=== PATIENT | male | born 1985 | race Caucasian/White ===

== ENCOUNTER → 2017-12-31 14:04 | Outpatient (CLI) | payer OTHER, SELFPAY ==
--- NOTE | 2017-12-31 14:05 | RAD_ITS ---
STUDY: X-RAY - RIGHT ANKLE REASON FOR EXAM: Male, 32 years old. Fall. TECHNIQUE: 3 view(s) of the ankle. COMPARISON: None. FINDINGS: Normal visualized distal tibia and fibula. Normal medial and lateral malleoli. Normal tibiotalar articulation and ankle mortise. Normal visualized talus and calcaneus. The visualized subtalar, talonavicular, calcaneocuboid and tarsal articulations are normal. There is no demonstrated fracture. The soft tissue structures are unremarkable. RAD/Ankle min 3 Views IMPRESSION: Normal x-ray examination of the ankle. Electronically Signed: Yaniv Storey MD at 23:36 EDT , Service support ,
== END ==
PROVIDERS: Family Provider Family Medicine; PCP Family Medicine; Referring Provider Physician Assistant Surgical; Visit Provider Physician Assistant Surgical
DX: S90.01XA Contusion of right ankle, initial encounter (principal)
CPT/HCPCS: 73610

== ENCOUNTER 2019-05-27 03:10 | Emergency (ER) | payer OTHER, SELFPAY ==
[2018-04-14 10:24] VITALS: BMI 35.9
[2019-05-27 03:12] VITALS: BP 139/95; PULSE 78; RESP 24; TEMP 35.5; O2SAT 100; BMI 37.2
--- NOTE | 2019-05-27 03:21 | ED.DCSUM_ITS ---
History of Present Illness Chief Complaint: Abd Pain Informant: Patient - Abdominal Pain/Flank Pain Onset: Hours - 2 Context: Sudden Onset Timing: Continuous, Waxes and wanes Quality: Aching Location: Right Flank - and radiates into scrotum Current Severity: Severe Maximum Severity: Severe - Nausea/Vomiting/Emesis GI Symptom: Nausea, Vomiting Onset: Today - Diarrhea/Melena/Hematochezia GI Symptom: Negative for: Diarrhea, Melena, Hematochezia Associated Symptoms: - - difficulty feels like needs to go but nothing coming out. Negative for: Dysuria, Frequency, Hematuria, Urgency Narrative: Sudden onset of severe symptoms tonight while resting. Seems to radiate into his scrotum. No history of kidney stones that he knows of. No history of any abdominal surgeries. Prior similar symptoms: No Recent Illness/Hospitalization: No Past Medical History - Allergies and Home Meds Allergies/Adverse Reactions: Allergies No Known Allergies Allergy (Verified 05/27/19 03:11) Primary Care Physician: Gerald Waldron MD [STAFF PHYSICIAN] - 1 Week if not improving Past Medical History: None Surgical History: no surgical history Lives: With Family Smoking Status: Current every day smoker Review of Systems General: Denies: Chills, Fever, Sweats Eyes: Denies: Visual changes - bilaterally, Diplopia ENT: Denies: Rhinorrhea, Sore throat Cardiovascular: Denies: Chest pain, Palpitations Respiratory: Denies: Dyspnea, Cough, Dyspnea on exertion Gastrointestinal: Reports: Abdominal pain, Nausea, Vomiting. Denies: Diarrhea, Melena, Hematochezia Genitourinary: Reports: - - difficulty urinating. see HPI.. Denies: Dysuria, Hematuria, Frequency Musculoskeletal: Reports: Back pain. Denies: Swelling, Extremity Pain Skin: Denies: Rash, Wounds Neurological: Denies: Headache, Weakness, Numbness Physical Exam Vital Signs/Narrative: Vital Signs Temp Pulse Resp BP Pulse Ox 05/27/19 03:12 95.9 F L 78 24 H 139/95 H 100 Inital Vital Signs reviewed: Yes General: Well nourished, Well developed, Acute Distress - mild painful Head: Normocephalic, Atraumatic Eyes: Perrl, EOMI ENT: Moist mucous membranes, No rhinorrhea Neck: Supple, Nontender Cardiovascular: Regular rate, Regular rhythm, No murmurs Respiratory: No distress, CTA bilaterally, Chest nontender Abdomen: Soft, Nondistended, Normal bowel sounds, Tender - mild suprapubic. Negative for: Guarding, Rebound tenderness Back: Normal Inspection, CVA tenderness - Right only Extremities: Nontender, No edema Skin: Normal color, No rash Neurological: Alert, Oriented x3, Cranial nerves II-XII grossly intact, Normal Strength, Normal Sensation, Normal Gait Psychological: Normal affect, Normal Mood Diagnostic/Tx/Re-eval Impressions Abdomen/Pelvis CT 05/27/19 03:21 IMPRESSION: Mild right hydronephrosis due to a 1.6 mm stone at the right UV junction. 2 mm stone within the mid lower pole of the right kidney. Remainder of the exam otherwise unremarkable. Electronically Signed: Gisell Marie MD at 4:05 EDT , Service support , 05/27/19 03:21 Abdomen/Pelvis without Cont [CT] Stat Laboratory Results 05/27/19 04:00 Urine Color Yellow Urine Clarity Clear Urine pH 5.0 Ur Specific [place] 1.025 Urine Protein 30 H Urine Glucose (UA) Normal Urine Ketones 5 H Urine Occult Blood 10 H Urine Nitrite Negative Urine Bilirubin Negative Urine Urobilinogen 1 H Ur Leukocyte Esterase Negative - Medical Decision Making CT shows a 3 mm right UVJ stone, consistent with the patient's symptoms. No other acute abnormalities. Urinalysis shows no signs of infection. His pain was well-controlled with Toradol and Zofran for nausea. He was driving his daughter home and does not want anything that would keep him from being able to do that. He was given prescriptions for Percocet and Zofran, strainers for urine, and appropriate discharge instructions, we discussed reasons to return and do follow-up with urology but expectant management indicated for now. ED Disposition - Plan for ED Patient: Disposition: Home or Assisted Living Diagnosis: Urolithiasis, Ureteral colic Instructions: KIDNEY STONE w/ Colic Prescriptions: Oxycodone HCl/Acetaminophen [Percocet 5/325] 1 tab PO Q6H PRN PRN 3 Days #12 tab PRN Reason: Pain Prescription Printed Ondansetron [Zofran Odt] 8 mg PO Q8H PRN PRN #12 tab PRN Reason: Nausea Prescription Printed Referrals: Gerald Waldron MD [STAFF PHYSICIAN] - 1 Week if not improving
--- NOTE | 2019-05-27 03:21 | CT_ITS ---
STUDY: CT ABDOMEN AND PELVIS WITHOUT CONTRAST REASON FOR EXAM: Male, 33 years old. GROIN PAIN THAT WOKE PT @ 130 AM,NAUSEA,DIFFICULT URINATION RADIATION DOSAGE (If Supplied By Facility): CTDIvol = ( 18.56 ) mGy, DLP = ( 1108.36 ) mGycm TECHNIQUE: Transaxial images were obtained from the dome of the diaphragm to the symphysis pubis without oral contrast, and without intravenous contrast. Sagittal and coronal images were reconstructed. Individualized dose optimization techniques were used for this CT. COMPARISON: None. FINDINGS: The visualized lung bases are unremarkable. The visualized portions of the heart are within normal limits. Normal liver. Normal gallbladder and extrahepatic biliary system. Normal spleen. Normal pancreas. Normal bilateral adrenal glands. 2 mm stone within the mid lower pole of the right kidney noted posteriorly. Mild right hydronephrosis and mild right hydroureter due to a distal stone at the right UV junction measuring 1.6 mm. Normal left kidney. Normal visualized stomach. Normal small intestine. Normal colon. The appendix is visualized and appears normal. Normal abdominal aorta. Normal inferior vena cava. Normal retroperitoneum. Decompressed urinary bladder otherwise unremarkable. Normal visualized prostate gland. Normal abdominal wall. Normal osseous structures. CT/Abdomen/Pelvis without Cont IMPRESSION: Mild right hydronephrosis due to a 1.6 mm stone at the right UV junction. 2 mm stone within the mid lower pole of the right kidney. Remainder of the exam otherwise unremarkable. Electronically Signed: Gisell Marie MD at 4:05 EDT , Service support ,
[2019-05-27] MEDS: Ketorolac 30 MG/ML Syringe IV (03:25)
[2019-05-27] MEDS: Ondansetron 4 MG/2 ML Vial IV (03:26)
[2019-05-27 04:09] LABS: Bacteria 0 SEEN /hpf (None Seen); Red Blood Cells-Urine 0 SEEN /hpf (0-5); Squamous Epithelial Cells - UA 0 SEEN /hpf (0-5); White Blood Cells 0 SEEN /hpf (0-5)
[2019-05-27 04:15] LABS: Color, Urine Yellow (Yellow); Glucose, Dipstick Normal (Normal); Ketone-Dipstick 5 mg/dl (Negative); Leukocyte Esterase-Dipstick Negative /ul (Negative); Nitrite-Dipstick Negative (Negative); Occult Blood-Urine 10 /ul (Negative); Protein-Dipstick 30 mg/dl (Negative); Specific Gravity, Urine 1.025 (1.002-1.030); Urine Bilirubin Dipstick Negative (Negative); Urine Clarity Clear (Clear); Urine Urobilinogen 1 mg/dl (Normal)
[2019-05-27 04:22] VITALS: BP 139/88; PULSE 87; RESP 16; O2SAT 98
[2019-05-27 04:26] LABS: Mucous, Urine RARE /hpf (<or=2+)
== END 2019-05-27 04:23 | disposition home or self-care (01) ==
LOC: ED 03:45
PROVIDERS: Emergency Provider Emergency Medicine
DX: N20.1 Calculus of ureter (principal); N23 Unspecified renal colic; F17.200 Nicotine dependence, unspecified, uncomplicated
CPT/HCPCS: 74176; 81001; 96374; 96375; 99284; A4216; J2405

== ENCOUNTER 2019-06-05 12:05 | Emergency (ER) | payer OTHER, SELFPAY ==
[2019-06-05 12:06] VITALS: BP 137/86; PULSE 74; RESP 17; TEMP 36.9; O2SAT 98; BMI 36.6
--- NOTE | 2019-06-05 12:16 | ED.VIS.GEN ---
History of Present Illness Chief Complaint: Flank Pain Detail of Chief Complaint: Right flank pain Informant: Patient Onset: Today Current Severity: Moderate Maximum Severity: Severe Narrative: Patient presents secondary to right flank pain. He was seen here in the ER on May 26 with right flank pain. CT showed a 1.6 mm stone at the right UVJ and a 2 mm stone in the lower pole the right kidney. Patient states symptoms were significantly improved. At 2 AM this morning he woke up with severe pain in the right flank region again. He denies obvious hematuria. He did have some nausea and vomiting secondary to pain this morning. He did take antiemetic as well as a dose of Percocet without significant improvement. - Past Medical History (1) Kidney stone Status: Acute Past Medical History - Allergies and Home Meds Allergies/Adverse Reactions: Allergies No Known Allergies Allergy (Verified 06/05/19 12:06) Primary Care Physician: Care Physician,No Primary [Primary Care Provider] - Prior records reviewed: Yes Surgical History: no surgical history Lives: With Family Smoking Status: Current every day smoker Review of Systems General: Denies: Chills, Fever Eyes: Denies: Visual changes - bilaterally ENT: Denies: Bilateral ear pain Cardiovascular: Denies: Chest pain Respiratory: Denies: Dyspnea, Cough Gastrointestinal: Reports: Abdominal pain - Right flank, Nausea, Vomiting Genitourinary: Denies: Dysuria, Hematuria Musculoskeletal: Denies: Extremity Pain Skin: Denies: Rash Hematologic: Denies: Easy bruising Physical Exam Vital Signs/Narrative: Vital Signs Temp Pulse Resp BP Pulse Ox 06/05/19 12:06 98.4 F 74 17 137/86 H 98 Inital Vital Signs reviewed: Yes General: Well nourished, Well developed Head: Normocephalic ENT: Moist mucous membranes Neck: Supple Cardiovascular: Regular rate, Regular rhythm Respiratory: No distress, CTA bilaterally Abdomen: Soft, Nontender Back: CVA tenderness Skin: Normal color Neurological: Alert, Oriented x3, Normal Strength, Normal Sensation Psychological: Normal affect Diagnostic/Tx/Re-eval Impressions KUB X-Ray 06/05/19 12:50 IMPRESSION: Questionable punctate calculus in the distal portion of the right ureter. Electronically Signed: Everett Cedeno, at 13:17 EDT , Service support , 06/05/19 12:50 KUB [Abdomen Single View] [RAD] Stat Laboratory Results 06/05/19 06/05/19 06/05/19 12:30 12:30 13:11 WBC 11.9 H RBC 4.86 Hgb 14.3 Hct 43.7 MCV 89.9 MCH 29.4 MCHC 32.7 RDW Std Deviation 42.9 RDW Coeff of [place] 13.2 Plt Count 272 MPV 8.6 Immature Gran % (Auto) 0.700 Neut % (Auto) 77.5 H Lymph % (Auto) 12.4 L Baker % (Auto) 7.0 Eos % (Auto) 1.9 Baso % (Auto) 0.5 Absolute Neuts (auto) 9.2 H Absolute Lymphs (auto) 1.47 Nucleated RBC % 0 Sodium 138 Potassium 4.3 Chloride 107 Carbon Dioxide 24.0 Anion Gap 7 BUN 18 Creatinine 1.51 H Estim Creat Clear Calc 74.94 Est GFR (MDRD) Af Amer 68 Est GFR (MDRD) Non-Af 56 L BUN/Creatinine Ratio 11.9 Glucose 105 Calcium 8.6 Urine Color Yellow Urine Clarity Clear Urine pH 5.0 Ur Specific [place] 1.020 Urine Protein Negative Urine Glucose (UA) Normal Urine Ketones Negative Urine Occult Blood 10 H Urine Nitrite Negative Urine Bilirubin Negative Urine Urobilinogen Normal Ur Leukocyte Esterase Negative Urine RBC 0 SEEN Urine WBC 0 SEEN Ur Squamous Epith Cells 0 SEEN Urine Bacteria 0 SEEN Urine Mucus 0 SEEN - Medical Decision Making Patient was given Toradol, morphine, Zofran, and IV fluids. On repeat evaluation he is resting comfortably denies any pain. At this time there is potential small stone noted at the distal right ureter. I am unsure if this is the same stone that was noted on CT last week or potentially the 2 mm stone that he had in the right kidney at that time. Regardless both stones would be small enough to pass without acute intervention. Pain is controlled at this point. Patient is encouraged to increase fluids. He will be given Toradol to take in addition to the Percocet and Zofran he already has at home. He will follow-up with Dr. Waldron as needed. ED Disposition - Plan for ED Patient: Disposition: Home or Assisted Living Diagnosis: Kidney stone on right side Instructions: ED Renal Stone w Colic Prescriptions: Ketorolac [Toradol] 10 mg PO Q6H PRN #14 tab PRN Reason: Pain Score 4-10/10 Transmission Status: Pending to [facility] Referrals: Gerald Waldron MD [STAFF PHYSICIAN] - As Needed
[2019-06-05] MEDS: Morphine 4 MG/ML Syringe IV (12:29)
[2019-06-05] MEDS: Ketorolac 30 MG/ML Syringe IV (12:29)
[2019-06-05] MEDS: Ondansetron 4 MG/2 ML Vial IV (12:29)
[2019-06-05] MEDS: 0.9% Normal Saline 1,000 ML 250 ML IV (12:31)
[2019-06-05 12:40] LABS: Absolute Lymphocyte Count 1.47 X10^3/uL (0.83-4.51); Absolute Neutrophil Count 9.2 X10^3/uL (2.0-7.7); Basophil# 0.06 X10^3/uL; Basophil% 0.5 % (0-1); Eosinophil# 0.22 X10^3/uL; Eosinophils% 1.9 % (0-5); Hematocrit 43.7 % (40-54); Hemoglobin 14.3 g/dL (13.0-16.5); Lymphocyte # 1.47 X10^3/ul (4.0); Lymphocyte % 12.4 % (19-41); Mean Corp Hgb Conc 32.7 g/dL (32-36); Mean Corpuscular Hgb 29.4 pg (27.0-32.0); Mean Corpuscular Volume 89.9 fL (80-94); Mean Platelet Vol. 8.6 fl (6.2-12.0); Monocyte# 0.83 X10^3/uL; NRBC Flagged by Analyzer 0 % (0-5); Neutrophil # 9.19 X10^3/uL (2.7-7.7); Neutrophil % 77.5 % (47-70); Platelet Count 272 K/mm3 (150-450); RBC Distribution Width CV 13.2 % (11.6-14.6); RBC Distribution Width SD 42.9 fl (35.1-43.9); Red Blood Count 4.86 M/mm3 (4.6-6.2); White Blood Count 11.9 K/mm3 (4.4-11.0)
--- NOTE | 2019-06-05 12:50 | RAD_ITS ---
STUDY: X-RAY - ABDOMEN/PELVIS REASON FOR EXAM: Male, 33 years old. Right sided flank pain TECHNIQUE: Single AP view of the abdomen / pelvis. COMPARISON: None. FINDINGS: There is a moderate amount of colonic fecal material. The visualized liver, spleen and kidneys are grossly normal in size and morphology. Questionable punctate calculus in the distal portion of the right ureter. Normal visualized osseous structures. RAD/Abdomen Single View IMPRESSION: Questionable punctate calculus in the distal portion of the right ureter. Electronically Signed: Everett Cedeno, at 13:17 EDT , Service support ,
[2019-06-05 12:53] LABS: Anion Gap 7 (5-15); BUN 18 mg/dL (7-18); BUN/Creat Ratio 11.9 RATIO (10-20); Calcium,Total 8.6 mg/dL (8.5-10.1); Chloride 107 mmol/L (98-107); Creatinine, Serum 1.51 mg/dL (0.70-1.30); EST Glomerular Filtration Rate 56 mL/min (>60); Est Glom Filt Rate - Afr Amer 68 mL/min (>60); Estimated Creatinine Clearance 74.94 ml/min; Glucose 105 mg/dL (74-106); Potassium 4.3 mmol/L (3.5-5.1); Sodium Level 138 mmol/L (136-145)
[2019-06-05 13:21] LABS: Bacteria 0 SEEN /hpf (None Seen); Mucous, Urine 0 SEEN /hpf (<or=2+); Red Blood Cells-Urine 0 SEEN /hpf (0-5); Squamous Epithelial Cells - UA 0 SEEN /hpf (0-5); White Blood Cells 0 SEEN /hpf (0-5)
[2019-06-05 13:24] LABS: Color, Urine Yellow (Yellow); Glucose, Dipstick Normal (Normal); Ketone-Dipstick Negative (Negative); Leukocyte Esterase-Dipstick Negative /ul (Negative); Nitrite-Dipstick Negative (Negative); Occult Blood-Urine 10 /ul (Negative); Protein-Dipstick Negative (Negative); Urine Bilirubin Dipstick Negative (Negative); Urine Clarity Clear (Clear); Urine Urobilinogen Normal (Normal)
[2019-06-05 14:36] VITALS: RESP 18
== END 2019-06-05 14:39 | disposition home or self-care (01) ==
PROVIDERS: Emergency Provider Emergency Medicine
DX: N20.0 Calculus of kidney (principal); F17.200 Nicotine dependence, unspecified, uncomplicated; Z87.442 Personal history of urinary calculi
CPT/HCPCS: 74018; 80048; 81001; 85025; 96361; 96374; 96375; 99283; J7030; A4216; J2405

== ENCOUNTER → 2019-08-28 15:22 | Outpatient (CLI) | payer OTHER, SELFPAY ==
[2019-08-28 15:05] VITALS: BMI 36.6
[2019-08-28 17:49] LABS: ALB/GLOB Ratio 1.1 RATIO (0.9-2.4); AST(SGOT) 20 U/L (15-37); Alanine Aminotransfer ALT/SGPT 35 U/L (16-61); Alkaline Phosphatase 82 U/L (45-117); Anion Gap 8 (5-15); BUN 16 mg/dL (7-18); BUN/Creat Ratio 15.2 RATIO (10-20); Calcium,Total 9.2 mg/dL (8.5-10.1); Chloride 109 mmol/L (98-107); Cholesterol 203 mg/dL (200); Creatinine, Serum 1.05 mg/dL (0.70-1.30); EST Glomerular Filtration Rate 85 mL/min (>60); Est Glom Filt Rate - Afr Amer 103 mL/min (>60); Globulin 3.8 g/dL (2.2-4.2); Glucose 112 mg/dL (74-106); High Density Lipoprotein 38 mg/dL; Potassium 3.7 mmol/L (3.5-5.1); Protein, Total 7.8 g/dL (6.4-8.2); Sodium Level 140 mmol/L (136-145); Triglycerides 235 mg/dL; Very Low Density Lipoprotein 47 mg/dL (5-40)
== END ==
PROVIDERS: PCP Internal Medicine; Referring Provider Internal Medicine; Visit Provider Internal Medicine
DX: K58.9 Irritable bowel syndrome, unspecified (principal); E66.9 Obesity, unspecified
CPT/HCPCS: 36415; 80053; 80061

== ENCOUNTER 2022-02-13 14:30 | Outpatient (RCR) | payer OTHER, SELFPAY ==
--- NOTE | 2022-01-26 18:04 | HP.PTEVAL_ITS ---
Patient's Visit Information GINA HATCH is a 36 year old M referred to Physical Therapy by GABRIEL Matias with a diagnosis of L shoulder strain. Date of Evaluation: 01/26/22 Physical Therapist: Davie Connolly, PT, ATC - Visit Plan Frequency: 1x/Week Duration: 1 Week Plan: Issue and instruct pt on HEP of rotator cuff strengthening and scap stab ex's - Subjective Pt reports his L shoulder has been sore for over one year. Pt notes he started working and bought a gym membership and that is when his L shoulder pain originated. Pt reports approximately 2 weeks ago, he went to the Dr. and was prescribed pain meds which has make all of his pain dissolve. Pt is R hand dominant. Pt reports he had sleep difficulty prior to seeing his doctor, but now has no sleep difficulty. Pt reports no tingling or numbness in L UE. 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 Pt does no recall if he has had problems with his L shoulder in the past. 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 Pt reports no pain at this time. - Pain L shoulder Pain Intensity (Out of 10): 0 Pain Intensity Range: 0 - Objective Palpation: Minor pain along supraspinatus and LHB tendon. Neuro: B UE sensation is WNL to light touch throughout. MMT: B UE's are grossly 5/5 throughout. ROM: B UE's are WFL when compared bilaterally - Balance/Special Test Scores Quick DASH Score: 0 - Goals Goal 1:: I with HEP of L shoulder rotator cuff strengthening and scap stab ex's Goal Time Frame: 4-6 Weeks - Rehabilitation Potential Physical Therapy Diagnosis: Pt had L shoulder pain and weakness secondary to a shoulder strain Rehabilitation Potential: Excellent - Anticipated Interventions Patient/Client Instruction: Educate patient on: Condition, Plan of Care For the Purpose of:: To improve self management Therapeutic Exercise to Include: Strength training, Endurance training, Active ROM, Scapular Strength/Stabilization For the Purpose of:: To decrease pain, To improve muscle performance and motor function Cryotherapy (ice pack, ice massage): Yes For the Purpose of:: To decrease pain Thank you for the opportunity to evaluate your patient. For Medicare and Medicare HMO plans, please review the plan of care and approve it. It will need to be FAXED BACK to us at [phone] for Medicare purposes. For Medicare only, by signing this I certify the plan of care. Please let me know if there are questions or concerns regarding this plan of care. Physician Signature: Date:
--- NOTE | 2022-06-26 07:21 | HP.PT.NRP ---
GINA HATCH was seen in my office for initial evaluation on 01/26/22. The following Plan of Care was established for this patient: Initial Frequency: 1x/Week Initial Duration: 1 Week Patient/Client Instruction: Educate patient on: Condition, Plan of Care For the Purpose of:: To improve self management Therapeutic Exercise to Include: Strength training, Endurance training, Active ROM, Scapular Strength/Stabilization For the Purpose of:: To decrease pain, To improve muscle performance and motor function Cryotherapy (ice pack, ice massage): Yes For the Purpose of:: To decrease pain This patient was last seen in our office . Pertinent comments regarding their Physical therapy will appear below: Pt was treated for 2 PT visits for L shoulder pain through the date of 02/13/22. Pt has not returned through todays date and is discontinued at this time. At this point I will be discontinuing this patient from physical therapy. I would be happy to see this patient again in the future if found appropriate by the physician. Thank you! Davie Connolly, PT, ATC Balance/Gait/Functional tests - Balance/Special Test Scores Quick DASH Score: 0
== END 2022-02-13 19:00 | disposition home or self-care (01) ==
LOC: PT 14:30
PROVIDERS: PCP Internal Medicine
DX: M19.012 Primary osteoarthritis, left shoulder (principal); M75.22 Bicipital tendinitis, left shoulder
CPT/HCPCS: 97110; 97161